=== PATIENT | female | born 1950 | race Caucasian/White ===

== ENCOUNTER → 2017-03-30 | Outpatient (CLI) | payer MEDICARE ==
[~2017-03-30] MED LIST: DETROL PO; LEXAPRO20 MG PO; LOSARTAN POTAS100 MG PO; METOPROLOL TAR25 MG PO; SIMVASTATIN20 MG PO
--- NOTE | ~2017-03-30 | MY29 ---
[facility] A Service of [facility] RADIOLOGY TEXT RESULTS PATIENT: NASIR ALVARADO LOCATION: [facility] : 52 UNIT #: [id number] AGE: [address]: Jacek Merritt MD SEX: F ORDER DR: [id number] [place], [place] [address] [id number] O MR#: [id number] Acc #: [id number] NAME: NASIR ALVARADO : 1950 SEX: F STUDY DATE/TIME: 03/30/2017 11:42 UNIT: [facility] ROOM: STUDY DESCRIPTION: MY MISAEL SCREENING W/ CAD BILAT Attending Physician: Jacek Merritt M.D. Referring Physician: Jacek Merritt M.D. Ordering Physician: Jacek Merritt M.D. Primary Care Physician: Jacek Merritt M.D. MEDICAL IMAGING REPORT This report is preliminary unless electronic signature is present EXAM Bilateral Digital Screening Mammogram with CAD INDICATION Breast cancer screening. 66-year-old asymptomatic female. No personal or family history of breast cancer. COMPARISON February 11, 2016, February 03, 2016. FINDINGS There are scattered fibroglandular tissues. No suspicious findings are present. IMPRESSION No mammographic evidence of malignancy. Annual screening mammography and clinical breast exam are recommended. A result letter will be sent to the patient. Patients over the age of 40 are entered into a reminder system with target due date for the next mammogram. BIRADS: 1 Negative Dictated by... Ricardo Jackson M.D. [facility] A Service of [facility] RADIOLOGY TEXT RESULTS PATIENT: NASIR ALVARADO LOCATION: [facility] : 52 UNIT #: [id number] AGE: [address]: Jacek Merritt MD SEX: F ORDER DR: THIS IS AN ELECTRONICALLY VERIFIED REPORT Ricardo Jackson M.D. at 04/04/2017 6:10 PM WILLY/ernie TD: 03/30/2017 16:37 JOB #: [id number] MEDICAL IMAGING REPORT Page 1 of 1 COPY
== END | disposition home or self-care (01) ==
LOC: CWCC 03-26 10:45
DX: Z12.31 Encounter for screening mammogram for malignant neoplasm of breast (principal)
CPT/HCPCS: G0202